=== PATIENT | female | born 1970 | race American Indian/Alaskan Native ===

== ENCOUNTER 2016-09-20 10:19 | Day surgery (SDC) | payer MEDICAID ==
[2016-09-20] MEDS ORDERED: NORCO 5/325 PO PRN ×2 (10:45→19:24)
[2016-09-20] MEDS ORDERED: ZOFRAN IV PRN ×2 (10:45→19:24)
[2016-09-20] MEDS ORDERED: DILAUDID IV PRN ×2 (10:45→19:24)
--- NOTE | 2016-09-20 10:45 | Anesthesia Consultation ---
Anesthesia Consult and Med Hx Date of service: 09/20/16 - Airway Anesthetic Teeth Evaluation: Good ROM Head & Neck: Adequate Mental/Hyoid Distance: Adequate Mallampati Class: Class I Intubation Access Assessment: Good - Pulmonary Exam CTA: Yes - Cardiac Exam Cardiac Exam: RRR Anesthetic Concerns: chipped tooth - Pre-Operative Health Status ASA Pre-Surgery Classification: ASA2 Proposed Anesthetic Plan: General - Pulmonary Hx Smoking: Yes (STOPPED X 3 DAYS,1/2PPD X 18YRS) Hx Sleep Apnea: No (REED PRE SCREEN LOW RISK.) - Cardiovascular System Hx Hypertension: No - Central Nervous System Hx Seizures: No CVA: No Hx Back Pain: Yes - Endocrine Hx Renal Disease: No Hx Cirrhosis: No Hx Insulin Dependent Diabetes: No Hx Non-Insulin Dependent Diabetes: No Hx Hypothyroidism: No - Other Systems Hx Substance Use: Yes (MARIJUANA 3 X WEEK) Hx Cancer: No Hx Obesity: Yes (BMI 33)
--- NOTE | 2016-09-20 10:45 | Anesthesia Day of Surgery ---
Anesthesia Day of Surgery - Day of Surgery Patient Examined: Yes Patient H&P Reviewed: Yes Patient is NPO: Yes
[2016-09-20] MEDS ORDERED: LACTATED RINGERS 1,000 ML IV SCH (11:00)
[2016-09-20] MEDS ORDERED: PEPCID PO NR (11:00)
[2016-09-20] MEDS ORDERED: VERSED IV NR (11:00)
[2016-09-20] MEDS ORDERED: NACL BACTERIOSTATIC INFILTRATI ONE (11:41)
[2016-09-20] MEDS ORDERED: ANCEF/STERILE WATER 2 GM/20 ML IV NR (12:00)
[2016-09-20] MEDS ORDERED: DIPRIVAN 10 MG/ML IV ONE (14:16)
[2016-09-20] MEDS ORDERED: DILAUDID ONE ×2 (14:16→15:07)
[2016-09-20] MEDS ORDERED: XYLOCAINE MPF 2% ONE (14:27)
[2016-09-20] MEDS ORDERED: DECADRON ONE (14:27)
[2016-09-20] MEDS ORDERED: ZOFRAN ONE (14:27)
[2016-09-20] MEDS ORDERED: NACL 0.9% 1000 ML 1,000 ML ONE (14:54)
[2016-09-20] MEDS ORDERED: APRESOLINE ONE (15:10)
[2016-09-20] MEDS ORDERED: NACL 0.9% IR ONE (15:16)
--- NOTE | 2016-09-20 17:27 | Operative Report ---
PREOPERATIVE DIAGNOSIS: Macromastia. POSTOPERATIVE DIAGNOSIS: Macromastia. PROCEDURE: Bilateral reduction mammoplasty. SURGEON: Dagoberto Mcfarlane M.D. AIR SURVEILLANCE OPERATOR: Herman Chan CSA. FINDINGS: A 640 gm removed from the right breast, 500 gm removed from the left breast. DESCRIPTION OF PROCEDURE: The patient was brought in to the operating room and placed on the table in supine position. Following administration of general anesthesia, bilateral breasts were prepped with Betadine solution and draped in usual sterile manner. A #10 blade scalpel was used to make a circumareolar skin incision followed by de-epithelization of inferior dermal pedicle. Modified Martin pattern skin markings were incised with scalpel, deepened through subcutaneous and breast tissue using the electrocautery. Skin flaps were raised in standard manner as was fashioning of an inferior central mound pedicle. Breasts tissue was resected and sent to pathology as a specimen. Hemostasis controlled using electrocautery. Skin flaps were closed over 10-mm Rashard drain using interrupted and running subcuticular 2-0 Monocryl sutures. Mastisol, Steri-Strips, and sterile dressings were applied. The patient tolerated the procedure well and returned to recovery room in stable condition. JOB# [id number] FTW/SHERLEY
--- NOTE | 2016-09-20 17:45 | Post Anesthesia Evaluation ---
- Post Anesthesia Evaluation Patient Participated: Yes Airway Patent: Yes Stable Respiratory Function: Yes Temp > 96.8F: Yes Pain Manageable: Yes Adequeate Hydration: Yes Anesthesia Complications: No Block Receding Appropriately: Not Applicable
[2016-09-20 18:32] VITALS: BP 130/78
== END 2016-09-20 18:25 | disposition home or self-care (01) ==
LOC: OR 10:19
PROVIDERS: ATTEND Plastic Surgery
DX: N62 Hypertrophy of breast (principal); F12.90 Cannabis use, unspecified, uncomplicated; E66.9 Obesity, unspecified; Z68.33 Body mass index [BMI] 33.0-33.9, adult; Z98.51 Tubal ligation status; Z72.89 Other problems related to lifestyle; Z87.891 Personal history of nicotine dependence; Z90.710 Acquired absence of both cervix and uterus; Z83.3 Family history of diabetes mellitus; Z82.49 Family history of ischemic heart disease and other diseases of the circulatory system
CPT/HCPCS: 19318; 88305; 88307; J0360; J0690; J1100; J1170; J2250; J2405; J2704; J7030; J7120

== ENCOUNTER 2017-01-10 06:32 | Day surgery (SDC) | payer MEDICAID ==
[~2017-01-10 06:32] MED LIST: ANCEF/STERILE WATER 2 GM/20 ML IV NR; BACITRACIN TP ONE; MARCAINE-EPI 0.25%-1:200,000 INFILTRATI ONE; TRIPLE ANTIBIOTIC TP ONE; XYLOCAINE 1%/ EPI 1:100,000 INFILTRATI ONE
[2017-01-10] MEDS ORDERED: DIPRIVAN 10 MG/ML IV ONE (08:10)
[2017-01-10] MEDS ORDERED: XYLOCAINE MPF 2% ONE (08:10)
--- NOTE | 2017-01-10 08:11 | Anesthesia Consultation ---
Anesthesia Consult and Med Hx Date of service: 01/10/17 - Airway Anesthetic Teeth Evaluation: Chipped (left front central ) ROM Head & Neck: Adequate Mental/Hyoid Distance: Adequate Mallampati Class: Class II Intubation Access Assessment: Probably Good - Pulmonary Exam CTA: Yes - Cardiac Exam Cardiac Exam: RRR - Pre-Operative Health Status ASA Pre-Surgery Classification: ASA2 Proposed Anesthetic Plan: MAC - Pulmonary Hx Smoking: Yes - Central Nervous System Hx Back Pain: Yes - Other Systems Hx Substance Use: Yes (MARIJUANA USE 01/01/17)
--- NOTE | 2017-01-10 08:12 | Anesthesia Day of Surgery ---
Anesthesia Day of Surgery - Day of Surgery Patient Examined: Yes Patient H&P Reviewed: Yes Patient is NPO: Yes
[2017-01-10] MEDS ORDERED: NACL 0.9% 1000 ML 1,000 ML ONE (08:13)
--- NOTE | 2017-01-10 08:15 | Discharge Summary ---
Short Stay Discharge Plan Activity: no restrictions Weight Bearing Status: Full Weight Bearing Diet: regular Wound: remove dressing (72hrs) Follow up with: LIZBETH BELL MD [Primary Care Provider] - 6 Weeks WORK,MITCHELL Steele JR, MD [Staff Physician] - 7 Days
--- NOTE | 2017-01-10 08:18 | Short Stay Summary ---
Short Stay Documentation Date of service: 01/10/17 - Allergies and Medications Current Medications: Allergies No Known Allergies Allergy (Verified 08/10/16 14:55) Home Medications Medication Instructions Recorded Confirmed Last Taken Type Naproxen Sodium [Aleve TAB] 220 mg PO PRN PRN 09/20/16 01/04/17 01/03/17 13:00 History Active Medications Cefazolin Sodium (Ancef/Sterile Water 2 Gm/20 Ml) 2 gm IV PREOP NR Stop: 01/10/17 21:00 - Brief post op/procedure progress note Date of procedure: 01/10/17 Pre-op diagnosis: Pigmented Nevi/Benign Skin Lesions of Back x2 RT breast and Abdomen Post-op diagnosis: same Procedure: Excision of Benign Skin lesion of Back 3cm with Complex Closure 4cm Excision of Benign Skin lesion of Back 2cm with Complex Closure 3cm Excision of Benign Skin Tag of RT Breast & Abdomen Anesthesia: MAC Surgeon: MITCHELL CAMPBELL JR Estimated blood loss: none Pathology: none Specimen disposition: to lab Condition: stable - Disposition Condition at discharge: Good Disposition: DC-01 TO HOME OR SELFCARE Short Stay Discharge Plan Follow up with: LIZBETH BELL MD [Primary Care Provider] - 6 Weeks MITCHELL CAMPBELL JR, MD [Staff Physician] - 7 Days
[2017-01-10] MEDS ORDERED: PEPCID PO NR (09:00)
[2017-01-10] MEDS ORDERED: NACL 0.9% 1000 ML 1,000 ML IV SCH (09:00)
[2017-01-10] MEDS ORDERED: VERSED IV NR (09:00)
[2017-01-10] MEDS ORDERED: DILAUDID ONE (09:08)
[2017-01-10] MEDS ORDERED: XYLOCAINE 1% 20 mL ONE (09:08)
[2017-01-10] MEDS ORDERED: VERSED ONE (09:08)
[2017-01-10] MEDS ORDERED: MARCAINE-EPI/PF 0.25%-1:200,000 INFILTRATI ONE (09:08)
[2017-01-10] MEDS ORDERED: ZOFRAN ONE (09:39)
[2017-01-10] MEDS ORDERED: TRIPLE ANTIBIOTIC TP ONE (09:46)
[2017-01-10] MEDS ORDERED: DILAUDID IV PRN (10:58)
[2017-01-10] MEDS ORDERED: ZOFRAN IV PRN (10:58)
--- NOTE | 2017-01-10 10:59 | Post Anesthesia Evaluation ---
- Post Anesthesia Evaluation Patient Participated: Yes Airway Patent: Yes Stable Respiratory Function: Yes Nausea/Vomiting: No Temp > 96.8F: Yes Pain Manageable: Yes Adequeate Hydration: Yes Anesthesia Complications: No
[2017-01-10] MEDS ORDERED: LACTATED RINGERS 1,000 ML IV SCH (11:00)
[2017-01-10 11:36] VITALS: BP 157/74
--- NOTE | 2017-01-10 14:17 | Operative Report ---
PREOPERATIVE DIAGNOSES: 1. Pigmented nevus of upper back. 2. Pigmented nevus of lower back. 3. Skin tags of right neck and abdomen. POSTOPERATIVE DIAGNOSES: 1. Pigmented nevus of upper back. 2. Pigmented nevus of lower back. 3. Skin tags of right neck and abdomen. PROCEDURES: 1. Excision, benign neoplasm of upper back, 3 cm. 2. Complex closure of upper back, 4 cm. 3. Excision of benign neoplasm of lower back, 2 cm. 4. Complex closure of lower back, 3 cm. 5. Removal of skin tags from right neck and abdomen quantity (quantity 2). SURGEON: Dagoberto Mcfarlane MD DESCRIPTION OF PROCEDURE: The patient was brought to the operating room and placed on the table in supine position. Following administration of general anesthesia, the patient was placed into the left lateral decubitus position. The respective areas were prepped with Betadine solution, draped in usual sterile manner. Curved iris scissors were used to excise also skin tags from the right neck and abdomen followed by needle point cauterization. Attention was directed to the back where the 3-cm pigmented nevus was excised in a vertical direction, sent to pathology as specimen. Hemostasis controlled using electrocautery. Closure was performed in layers using interrupted and running subcuticular 2-0 Monocryl sutures followed by Mastisol, Steri-Strips and sterile dressing. Similarly, the lower back pigmented lesion was excised in a transverse direction, sent to pathology as specimen. Hemostasis controlled using electrocautery. Closure was performed in layers using interrupted and running subcuticular 2-0 Monocryl sutures followed by Mastisol, Steri-Strips and sterile dressing. The patient tolerated the procedure well and returned to recovery room in stable condition. JOB# [id number] FTW/NTS
== END 2017-01-10 12:15 | disposition home or self-care (01) ==
LOC: OR 06:32
PROVIDERS: ATTEND Plastic Surgery
DX: D22.5 Melanocytic nevi of trunk (principal); L91.8 Other hypertrophic disorders of the skin; F12.90 Cannabis use, unspecified, uncomplicated; Z87.891 Personal history of nicotine dependence; Z90.710 Acquired absence of both cervix and uterus
CPT/HCPCS: 11200; 11406; 13101; 88304; J0690; J1170; J2250; J2405; J2704; J7030; A6250